=== PATIENT | female | born 1970 | race Caucasian/White ===

== ENCOUNTER → 2018-01-02 | Outpatient (CLI) | payer OTHER ==
[~2018-01-02] MED LIST: BENZ200C15 PO; CEPH500T7 PO; CETI-184 PO; DOXY-179 PO; MET2 PO; MULT-817 PO; PRED20TA6 PO; PREN-67 PO; ROBC PO
--- NOTE | 2018-01-02 10:15 | RADIOLOGY IMAGING REPORT ---
FACILITY: [facility] PATIENT NAME: Shelbi Weiner : 1970 MR: [id number] V: [id number] EXAM DATE: ORDERING PHYSICIAN: LUIS ALFREDO ASHLEY TECHNOLOGIST: Location: [facility] Patient: Shelbi Weiner : 1970 Visit/Account:[id number] Date of Sevice: 01/02/2018 MRI right knee without contrast Indication: Knee pain. Comparison: None available. Technique: Multiplanar, multisequence MRI examination is performed of the right knee without contrast . Findings: Examination of the medial compartment demonstrates a normal medial meniscus. The articular cartilage surfaces are normal. Examination of the lateral compartment demonstrates abnormal undersurface signal beginning at the derek ction of the body and the anterior horn and extending into the anterior horn suspicious for an anteri or horn lateral meniscal tear. No displaced meniscal fragment. Signal in this location can also be re lated to the ACL insertion. Articular surfaces are maintained. Examination of the patellofemoral compartment demonstrates partial-thickness chondrosis at the median ridge of the patella. This extends to the adjacent medial and lateral patellar surfaces. Focal area of fissuring involves the lateral patellar surface. There is subchondral edema. The trochlear surface s are maintained. ACL and PCL are intact. The MCL is intact. The lateral collateral ligament complex is maintained. The extensor mechanism is intact. Intermediate joint effusion is seen. This extends into a popliteal cyst. T2 signal extends inferior t o this cyst along the medial gastrocnemius fossa suggesting recent partial rupture into the soft tiss ues. Correlate for symptoms. IMPRESSION: 1. Intermediate right knee joint effusion which extends into a popliteal cyst. Findings suggest recen t partial rupture of the cyst into the inferior soft tissues. 2. Abnormal morphology and signal involving the anterior horn of the lateral meniscus extending to th e junction with the body suspicious for an undersurface lateral meniscal tear. 3. 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 Report Dictated By: Tristin Byers at 01/02/2018 10:00 AM Report E-Signed By: Tristin Byers at 01/02/2018 10:10 AM WSN:[id number]
== END ==
LOC: MRI 06:58
PROVIDERS: ATTEND Nurse Practitioner Primary Care
DX: M25.461 Effusion, right knee (principal); M22.2X1 Patellofemoral disorders, right knee